=== PATIENT | male | born 1990 | race Caucasian/White ===

== ENCOUNTER 2017-05-03 22:16 | Emergency (ER) | payer OTHER ==
[~2017-05-03] VITALS: Ht 172.7 cm; Wt 70.3 kg
[2017-05-03 22:24] VITALS: TEMP 36.7; Ht 172.7 cm; Wt 70.3 kg
[2017-05-03] MEDS ORDERED: METRONIDAZOLE 250 MG TAB PO STA (22:49)
[2017-05-03] MEDS ORDERED: NORT25CA PO (22:51)
[2017-05-03] MEDS ORDERED: SULF800T23 PO (22:54)
[2017-05-03] MEDS ORDERED: METR-162 PO (22:54)
[2017-05-03] MEDS ORDERED: SEPTRA DS HOME PACK 1 EA VIAL PO ONE (23:00)
[2017-05-03 23:20] VITALS: BP 128/82; PULSE 75; O2SAT 96
--- NOTE | 2017-05-04 00:24 | EMERGENCY ROOM VISIT NOTE ---
History First contact with patient: 22:33 Chief Complaint: BITE Stated Complaint: DOG BITE L LEG History of Present Illness The patient is a 26 year old male who presents to the Emergency Room with complaints of dog bite to the posterior left leg. The patient said he was doing his laundry when a larger dog approached him and bit his left leg. The animal was with its bleach liquor maker, and the patient did get the contact information for the animal. The patient believes he is up-to-date on his tetanus. He is allergic to penicillin. He is able to ambulate and does not have significant bleeding from the leg. He rates his discomfort a 4/10. Review of Systems More than 10 systems were reviewed and otherwise negative with the exception of history of present illness. Past Medical/Surgical History No chronic medical disease Family History No pertinent family history Social History Alcohol Use: occasionally Marital Status: in relationship Current/Historical Medications Scheduled Metronidazole (Flagyl), 500 MG PO TID Nortriptyline (Pamelor), 25 MG PO HS Sulfa/Trimethoprim (Bactrim Ds 800MG/160MG), 1 TAB PO BID Physical Exam Vital Signs Date Time Temp Pulse Resp B/P (MAP) Pulse Ox O2 Delivery O2 Flow Rate FiO2 05/03/17 23:20 75 18 128/82 96 05/03/17 22:24 36.7 86 18 157/82 97 Room Air Pain Rating (0-10): 2.0 Physical Exam VITALS: Vitals are noted on the nurse's note and reviewed by myself. Vital signs stable. GENERAL: Well-developed, well-nourished, white male, who is in no acute distress and resting comfortably. Patient is cooperative with the examination. HEART: Regular rate and rhythm without murmurs gallops or rubs. LUNGS: Clear to auscultation bilaterally without wheezes, rales or rhonchi. No retractions or accessory muscle use. MUSCULOSKELETAL: Puncture wound appreciated to the left posterior calf proximally consistent with dog bite. There is no significant laceration that requires repair. The patient is with full sensation and range of motion of the left lower extremity. No evidence of infection at this time. NEURO: Patient was alert and oriented to person place and time. CN II through XII grossly intact Medical Decision & Procedures Medications Administered Medications (Trade) Dose Ordered Sig/Romel Route Start Time Stop Time Status Last Admin Dose Admin Trimethoprim/ Sulfamethoxazole (Sulfameth/ Trimeth Ds 800/ 160MG Home Pack) 1 homepack UD ONCE PO 05/03/17 23:00 05/03/17 23:01 DC 05/03/17 23:10 1 HOMEPACK Metronidazole (Flagyl Tab) 500 mg NOW STAT PO 05/03/17 22:49 05/03/17 22:52 DC 05/03/17 23:10 500 MG ED Course Physical exam and history were performed. Nursing notes, EMR, and Medication List were personally reviewed. Patient appears to have been bitten by a dog in the left calf. The patient was given Bactrim and Flagyl here in the department as he is pen allergic. His wound was cleansed and dressed. I spent a lengthy time speaking with the patient about rabies postexposure prophylaxis. The patient is confident that he can establish the immunization status of the animal as he does have the owners contact information. I explained that if he has any concerns he is to return to the ER immediately. I also discussed possibility of animal quarantine. The patient was comfortable with deferring rabies series at this time. Dog bite form was completed. The patient rated his discomfort a 2/10 at the time of departure. The chart was completed utilizing [employer] Voice Recognition Software. Grammatical errors, random word insertions, pronoun errors, and incomplete sentences are an occasional consequence of this system due to software limitations, ambient noise, and hardware issues. Any formal questions or concerns about the content, text, or information contained within the body of this dictation should be directly addressed to the provider for clarification. . Medical Decision Differential diagnosis: Etiologies such as cellulitis, abscess, MRSA infection, DVT, necrotizing fasciitis, dermatitis, drug eruption, as well as others were entertained.. Impression Primary Impression: Dog bite Departure Information Dispostion Home / Self-Care Condition GOOD Prescriptions Metronidazole (FLAGYL) 500 Mg Tab 500 MG PO TID for 9 Days, #27 TAB Prov: Chu Durant PA-C 05/03/17 Sulfa/Trimethoprim (Bactrim Ds 800MG/160MG) Tab 1 TAB PO BID for 9 Days, #18 TAB Prov: Chu Durant PA-C 05/03/17 Referrals Miguel Palmer M.D. (PCP) Forms HOME CARE DOCUMENTATION FORM, IMPORTANT VISIT INFORMATION Patient Instructions My [facility] Additional Instructions You were seen and evaluated today on an emergency basis only. This is not a substitute for, or an effort to provide, complete comprehensive medical care. It is not possible to recognize and treat all injuries or illnesses in a single emergency department visit. For this reason it is recommended that you followup with your primary care physician for ongoing care and evaluation. Trimethoprim-Sulfamethoxazole(Bactrim DS): Take one pill twice daily for 10 days for your skin infection. All antibiotics can cause diarrhea. If this occurs and you feel worse or it does not resolve in 1-2 days follow up with your doctor or return to the Emergency Department as this could be signs of serious underlying problems. Any medication can cause an allergic reaction, stop the pills immediately and return to the ER for rash, hives, breathing difficulties, or swelling. Metronidazole(Flagyl) 500mg: Take one pill three times daily for 10 days for your infection. DO NOT drink alcohol or take alcohol containing products with this medication. Any medication can cause an allergic reaction, stop the pills immediately and return to the ER for rash, hives, breathing difficulties, or swelling. If you are not satisfied with the rabies status of the animal please return to the emergency department immediately to begin the series. You are welcome to return to the emergency department anytime with new, worsening, or concerning symptoms.
== END 2017-05-03 23:15 | disposition home or self-care (01) ==
LOC: C.EDB 22:17 → C.EDC 23:15
DX: S81.852A Open bite, left lower leg, initial encounter (principal); W54.0XXA Bitten by dog, initial encounter